=== PATIENT | male | born 1950 | race Caucasian/White ===

== ENCOUNTER 2017-02-13 00:37 | Emergency (ER) | payer OTHER ==
[2017-02-13] MEDS: MORPHINE SULFATE INJ 10 MG/ML VIAL IV ONE (00:50)
[2017-02-13] MEDS ORDERED: POVIDONE IODINE 10 % 15 ML UD TOP ONE (00:52)
[2017-02-13] MEDS ORDERED: LIDOCAINE 1% W/ EPINEPHRINE 20 ML VIAL INJ ONE (00:52)
[2017-02-13] MEDS ORDERED: MORPHINE SULFATE INJ 10 MG/ML VIAL ONE (00:54)
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
--- NOTE | 2017-02-13 01:25 | RAD ---
EXAM: Single view chest. INDICATION: Chest pain. COMPARISON: Chest x-ray: None. FINDINGS: Cardiac silhouette: Unremarkable. Deepthi: Unremarkable. Lobar consolidation: None. Pleural effusion: None. Pneumothorax: None. Other: None. Bones: Unremarkable. Other: None. IMPRESSION: 1. No acute cardiopulmonary process. Electronically signed by: Pedro Roberts MD 02/13/2017 1:24 AM CDT
--- NOTE | 2017-02-13 01:37 | RAD ---
EXAM: Two view(s) of the right ribs. INDICATION: Pain. COMPARISON: None. FINDINGS: No acute fracture or dislocation. No large soft tissue swelling. IMPRESSION: 1. No acute fracture. Electronically signed by: Pedro Roberts MD 02/13/2017 1:36 AM CDT
--- NOTE | 2017-02-13 01:38 | RAD ---
EXAM: Three view(s) of the right knee. INDICATION: Pain. COMPARISON: None. FINDINGS: No acute fracture or dislocation. There is soft tissue swelling with subcutaneous emphysema along the medial aspect of the right lower extremity. There is no radiopaque foreign body IMPRESSION: 1. No acute fracture. Electronically signed by: Pedro Roberts MD 02/13/2017 1:37 AM CDT
[2017-02-13] MEDS: TETANUS,DIPHTHERIA,PERTUSSIS 1 EA SYG IM ONE (02:35)
--- NOTE | 2017-02-13 02:36 | CT ---
EXAM: CT chest without contrast. INDICATION: Chest pain. TECHNIQUE: Contiguous axial CT images of the chest. Intravenous contrast: Absent. DLP 590 mGy-cm. This exam was performed according to our departmental dose-optimization program, which includes automated exposure control, adjustment of the mA and/or kV according to patient size and/or use of iterative reconstruction technique. COMPARISON: None. FINDINGS: Upper abdomen: Partially imaged. Thoracic aorta: Unremarkable. Heart: There are atherosclerotic calcifications of the coronary arteries Mediastinum: No pathologic sized middle mediastinal lymphadenopathy. Tracheobronchial tree: Unremarkable. Lungs: Lobar consolidation: Negative. Pleural effusion: Negative. Pneumothorax: Negative. Other: Negative. Bones: Unremarkable. IMPRESSION: 1. No CT evidence of acute process in the chest. 2. Coronary artery disease Electronically signed by: Pedro Roberts MD 02/13/2017 2:36 AM CDT
[2017-02-13] MEDS ORDERED: ORPHENADRINE CITRATE 30 MG/ML AMP IV ONE (02:48)
[2017-02-13] MEDS ORDERED: CLINDAMYCIN IV 300MG 50 ML IVPB ONE (02:56)
[2017-02-13] MEDS: CLINDAMYCIN IV 300MG 300 MG in PREMIX BAG 1 BAG IVPB ONE (03:00)
[2017-02-13] MEDS: ORPHENADRINE CITRATE 30 MG/ML AMP IM ONE (03:00)
[2017-02-13 04:53] VITALS: BP 130/67; TEMP 97.2; O2SAT 98
== END 2017-02-13 04:10 | disposition home or self-care (01) ==
LOC: ER 00:37
DX: S20.211A Contusion of right front wall of thorax, initial encounter (principal); S86.911A Strain of unspecified muscle(s) and tendon(s) at lower leg level, right leg, initial encounter; S81.011A Laceration without foreign body, right knee, initial encounter; Z79.899 Other long term (current) drug therapy; Z23 Encounter for immunization; V28.4XXA Motorcycle driver injured in noncollision transport accident in traffic accident, initial encounter; Y92.488 Other paved roadways as the place of occurrence of the external cause
CPT/HCPCS: 71010; 71100; 71250; 73560; J2270; J3490